=== PATIENT | female | born 1950 | race Caucasian/White ===

== ENCOUNTER 2018-07-07 12:56 | Emergency (ER) | payer OTHER ==
[~2018-07-07] VITALS: Ht 165.1 cm; Wt 96.2 kg
[2018-07-07 12:57] VITALS: BP 156/77
[2018-07-07] MEDS ORDERED: TRAMADOL 50 MG50 MG PO (14:01)
[2018-07-07] MEDS ORDERED: PREDNISONE 20 M20 MG PO (14:01)
== END 2018-07-07 14:08 | disposition home or self-care (01) ==
LOC: ER 12:56
DX: M65.4 Radial styloid tenosynovitis [de Quervain] (principal); J44.9 Chronic obstructive pulmonary disease, unspecified; I10 Essential (primary) hypertension; F17.210 Nicotine dependence, cigarettes, uncomplicated